=== PATIENT | male | born 1985 | race Caucasian/White ===

== ENCOUNTER → 2017-09-27 | Outpatient (REF) | payer OTHER ==
[2017-09-27 08:58] LABS: SEMEN APPEARANCE OPAQUE (OPAQUE); SEMEN VISCOSITY LIQUID (LIQUID); SEMEN VOLUME 3.2 ml (4.0-5.0); SPERM ABNORMAL FORMS WBC'S NOTED; WBC CONCENTRATION <=1 M/ml (<=1 M/ml)
[2017-09-27 08:59] LABS: % NORMAL FORMS 10 % (>=4); IMMOTILITY 52 %; NON PROGRESSIVE MOTILITY (c) 6 %; PROGRESSIVE MOTILITY (a) 42 % (>=32); SPERM CONCENTRATION 110.3 M/ml (>=15.0); TOTAL FUNCTIONAL 33.5 M/Ejac.; TOTAL MOTILITY 48 % (>=40); TOTAL PROGRESSIVE SPERM 146.9 M/Ejac.
== END ==
LOC: M LAB REF 08:22
DX: N46.8 Other male infertility (principal)
CPT/HCPCS: 89320